=== PATIENT | male | born 1955 | race Caucasian/White ===

== ENCOUNTER 2017-02-22 12:34 | Emergency (ER) | payer MEDICARE ==
[~2017-02-22 12:34] MED LIST: ASA325 MG PO; CELEBREX200 MG PO; HABITROL DPS21 MG TP; LANTUS100 UNITS/ SQ; LOFIBRA160 MG PO; NEURONTIN300 MG PO; NOVOLOG100 UNIT/2 SQ; OXY IR DPS5 MG PO; PRINIVIL20 MG PO; PROTONIX40 MG PO; SENOKOT S1 TAB PO; TYLENOL325 MG PO; ULTRAM50 MG PO; ZOCOR20 MG PO
--- NOTE | 2017-03-06 16:41 | ER ---
ADMIT: 02/22/2017 RM/LOC: ER [facility] MR#: [id number] [address] [id number] RUCHI BONILLA [address] [place] [address] Emergency Room Report SEX: M AGE: 61 : 1955 DATE: 02/22/2017 This 61-year-old comes to the Emergency Department with 7 days worth of bilateral leg pain and knees down to the ankle. Describes it as a burning pins and needles sensation, worsened with activity. No injuries. He is a diabetic. See T sheet for history and physical. The patient is diagnosed with neuropathy. His A1c was 6.3. BMP normal, creatinine, and BUN. Patient diagnosed with neuropathy, instructed to follow up with his primary physician this coming week. David Rivera MD/ malcoml JOB #: [id number] CC: Dhiraj Hernandez MD, Attending Physician UNKNOWN, Family Physician
== END 2017-02-22 14:30 | disposition home or self-care (01) ==
LOC: ER 12:34
DX: E11.40 Type 2 diabetes mellitus with diabetic neuropathy, unspecified (principal); F17.210 Nicotine dependence, cigarettes, uncomplicated; I10 Essential (primary) hypertension; Z79.899 Other long term (current) drug therapy